=== PATIENT | female | born 1980 | race Caucasian/White ===

== ENCOUNTER 2020-10-16 10:33 | Emergency (ER) | payer OTHER ==
[2020-10-16] MEDS ORDERED: ACETAMINOPHEN 325 MG TABLET PO ONE (11:07)
--- NOTE | 2020-10-16 11:09 | ER Document Report ---
ED Medical Screen (RME) - General Chief Complaint: Pelvic Pain Stated Complaint: PELVIC PAIN Time Seen by Provider: 10/16/20 11:01 - HPI Notes: 10/16/20 11:07 40-year-old female presents to the emergency room today for evaluation of sudden onset left-sided pelvic pain that started abruptly 12 hours ago, pain is 5 out of 5 and constant, describes a sharp pain. Reports the pain does radiate to her lower back. Denies any vaginal bleeding, vaginal discharge. Last bowel movement was this morning. Patient states she does have a history of endometriosis and this pain does feel different. LMP 09/30/2020. Tried 800 mg ibuprofen at 6:00 this morning without pain relief. Denies any nausea, vomiting, abdominal pain, chest pain, shortness of breath, fevers or chills.Taking Abilify and Cymbalta to manage her depression. Patient is visiting from [place] I have greeted and performed a rapid initial assessment of this patient. A comprehensive ED assessment and evaluation of the patient, analysis of test results and completion of the medical decision making process will be conducted by additional ED providers. PHYSICAL EXAMINATION: GENERAL: Well-appearing, well-nourished and in mild distress CV: s1, s2 regular LUNGS: No respiratory distress abd: Left suprapubic tenderness on palpation. no cva tenderness appreciated bilaterally Musculoskeletal: Normal range of motion NEUROLOGICAL: Normal speech, normal gait. SKIN: Warm, Dry, normal turgor, no rashes or lesions noted. The patient was evaluated during a global COVID-19 pandemic and that diagnosis was suspected/considered upon their initial presentation. Their evaluation, treatment and testing was consistent with current guidelines for patients who present with complaints or symptoms and may be related to COVID-19. - Related Data Allergies/Adverse Reactions: clonidine Allergy (Verified 10/16/20 11:00) Past Medical History - Social History Frequency of alcohol use: None Drug Abuse: None Physical Exam - Vital signs Vitals: Temp Pulse Resp BP Pulse Ox 98.2 F 79 18 174/89 H 98 10/16/20 10:48 10/16/20 10:48 10/16/20 10:48 10/16/20 10:48 10/16/20 10:48 Course - Vital Signs Vital signs: Temp Pulse Resp BP Pulse Ox 98.2 F 79 18 174/89 H 98 10/16/20 10:48 10/16/20 10:48 10/16/20 10:48 10/16/20 10:48 10/16/20 10:48
[2020-10-16 11:36] LABS: APPEARANCE,URINE SLIGHTLY-CLOUDY; BILIRUBIN,URINE NEGATIVE (NEGATIVE); COLOR,URINE YELLOW; GLUCOSE, URINE NEGATIVE (NEGATIVE); KETONES,URINE NEGATIVE (NEGATIVE); LEUKOCYTE ESTERASE,URINE TRACE (NEGATIVE); NITRITE,URINE NEGATIVE (NEGATIVE); PROTEIN,URINE 100 mg/dL (NEGATIVE); URINE SPECIFIC GRAVITY 1.027; UROBILINOGEN,URINE NEGATIVE mg/dL (<2.0)
--- NOTE | 2020-10-16 12:27 | RADIOLOGY REPORT (SQ) ---
EXAM DESCRIPTION: U/S NON OB PEL TV W/DOPPLER IMAGES COMPLETED DATE/TIME: 10/16/2020 11:51 am REASON FOR STUDY: sudden onset L pelvic pain x 12hrs,-bleeding,+endo COMPARISON: None. TECHNIQUE: Dynamic and static grayscale images acquired of the pelvis via transvaginal approach and recorded on PACS. Additional selected color Doppler and spectral images recorded. LIMITATIONS: None. FINDINGS: UTERUS: The myometrium is slightly heterogeneous. Cannot exclude the presence of some ill -defined fibroids. ENDOMETRIAL STRIPE: No focal or generalized thickening. No masses. CERVIX: 3.4 cm. No nabothian cysts. RIGHT OVARY AND DOPPLER: Normal size. No worrisome masses. Normal arterial vascular flow without evid ence for torsion. LEFT OVARY AND DOPPLER: Normal size. No worrisome masses. Normal arterial vascular flow without evide nce for torsion. FREE FLUID: None noted. OTHER: No other significant finding. MEASUREMENTS: UTERUS: 10.7 x 6.9 x 5.8 cm. ENDOMETRIAL STRIPE: 4 mm. RIGHT OVARY: 2.6 x 1.8 x 2.3 cm. LEFT OVARY: 2.4 x 1.5 x 1.5 cm. IMPRESSION: There may be some small uterine fibroids. No other significant or acute finding. TECHNICAL DOCUMENTATION: JOB ID: [id number] [employer]- All Rights Reserved Rev-02/05 Reading location - IP/workstation name: [email or web address]
[2020-10-16 12:28] LABS: ABSOLUTE EOSINOPHILS # (AUTO) 0.2 10^3/uL (0.0-0.6); ABSOLUTE LYMPHOCYTES (AUTO) 2.8 10^3/uL (0.5-4.7); ABSOLUTE MONOCYTES (AUTO) 0.7 10^3/uL (0.1-1.4); ABSOLUTE NEUT (AUTO) 8.2 10^3/uL (1.7-8.2); BASOPHILS % (AUTO) 0.3 % (0-2); EOSINOPHILS % (AUTO) 1.3 % (0-6); HEMATOCRIT 37.8 % (36.0-47.0); HEMOGLOBIN 12.3 g/dL (12.0-15.5); LYMPHOCYTES % (AUTO) 23.6 % (13-45); MEAN CORPUSCULAR HEMOGLOBIN 25.3 pg (27.0-33.4); MEAN CORPUSCULAR HGB CONC 32.6 g/dL (32.0-36.0); MEAN CORPUSCULAR VOLUME 78 fl (80-97); MONOCYTES % (AUTO) 5.6 % (3-13); PLATELET COUNT 289 10^3/uL (150-450); RED BLOOD COUNT 4.87 10^6/uL (3.72-5.28); RED CELL DISTRIBUTION WIDTH 16.5 % (11.5-14.0); SEGMENTED NEUTROPHILS % (AUTO) 69.2 % (42-78); TOTAL CELLS COUNTED % (AUTO) 100 %; WHITE BLOOD COUNT 11.8 10^3/uL (4.0-10.5)
[2020-10-16] MEDS ORDERED: ONDANSETRON 4 MG TAB.RAPDIS PO ONE (13:05)
[2020-10-16] MEDS ORDERED: MORPHINE SULFATE 10 MG/ML INJ IV ONE (13:05)
--- NOTE | 2020-10-16 14:11 | ER Document Report ---
ED General - General Chief Complaint: Pelvic Pain Stated Complaint: PELVIC PAIN Time Seen by Provider: 10/16/20 11:01 Mode of Arrival: Ambulatory Information source: Patient - HPI Notes: Patient presents with left lower quadrant pain x1 day. She states it started in the middle the night last night. She states is severe and constant. It does radiate down into the right side of the abdomen as well. It is sharp. States she has had similar pain when she has had a cyst in her ovary in the past. She denies any vaginal symptoms such as bleeding or discharge. She denies any knowledge of being . She has had no problem with stool. She has no dysuria urgency or frequency. - Related Data Allergies/Adverse Reactions: clonidine Allergy (Verified 10/16/20 11:00) Past Medical History - General Information source: Patient - Social History Smoking Status: Current Every Day Smoker Frequency of alcohol use: None Drug Abuse: None Family History: Reviewed & Not Pertinent Review of Systems - Review of Systems Constitutional: denies: Chills, Fever Cardiovascular: denies: Chest pain, Palpitations Respiratory: denies: Cough, Short of breath -: Yes All other systems reviewed and negative Physical Exam - Vital signs Vitals: Temp Pulse Resp BP Pulse Ox 98.2 F 79 18 174/89 H 98 10/16/20 10:48 10/16/20 10:48 10/16/20 10:48 10/16/20 10:48 10/16/20 10:48 Interpretation: Hypertensive - General General appearance: Appears well, Alert - HEENT Head: Normocephalic, Atraumatic Eyes: Normal Pupils: PERRL - Respiratory Respiratory status: No respiratory distress Chest status: Nontender Breath sounds: Normal Chest palpation: Normal - Cardiovascular Rhythm: Regular Heart sounds: Normal auscultation Murmur: No - Abdominal Inspection: Obese Distension: No distension Bowel sounds: Normal Tenderness: Tender - Left lower quadrant Organomegaly: No organomegaly - Back Back: Normal, Nontender - Extremities General upper extremity: Normal inspection, Nontender, Normal color, Normal ROM, Normal temperature General lower extremity: Normal inspection, Nontender, Normal color, Normal ROM, Normal temperature, Normal weight bearing. No: Delicia's sign - Neurological Neuro grossly intact: Yes Cognition: Normal Orientation: AAOx4 Roberto Coma Scale Eye Opening: Spontaneous [place] Coma Scale Verbal: Oriented [place] Coma Scale Motor: Obeys Commands [place] Coma Scale Total: 15 Speech: Normal Motor strength normal: LUE, RUE, LLE, RLE Sensory: Normal - Psychological Associated symptoms: Normal affect, Normal mood - Skin Skin Temperature: Warm Skin Moisture: Dry Skin Color: Normal Course - Re-evaluation Re-evalutation: 10/16/20 14:09 I do not believe the urine would explain her pain possibly she has some fibroid related pain and I have explained this to her. I have instructed her that is important she follow back up with her motor and controls tester and that I will discharge her home with antibiotics and pain medication. - Vital Signs Vital signs: Temp Pulse Resp BP Pulse Ox 98.2 F 79 18 174/89 H 98 10/16/20 10:48 10/16/20 10:48 10/16/20 10:48 10/16/20 10:48 10/16/20 10:48 - Laboratory Results Result Diagrams: 10/16/20 12:05 10/16/20 13:48 Laboratory Results Interpreted: 10/16/20 10/16/20 11:15 12:05 WBC 11.8 H MCV 78 L MCH 25.3 L RDW 16.5 H Urine Protein 100 H Urine Blood SMALL H Ur Leukocyte Esterase TRACE H Critical Laboratory Results Reviewed: No Critical Results - Radiology Results Critical Radiology Results Reviewed: No Critical Results Discharge - Discharge Clinical Impression: UTI (urinary tract infection) Qualifiers: Urinary tract infection type: acute cystitis Hematuria presence: without hematuria Qualified Code(s): N30.00 - Acute cystitis without hematuria Condition: Stable Disposition: HOME, SELF-CARE Instructions: Urinary Tract Infection ([facility]), Pelvic Pain ([facility]), Nitrofurantoin ([facility]) Additional Instructions: Please follow-up with your motor and controls tester as soon as possible Prescriptions: Nitrofurantoin Monohyd/M-Cryst [Macrobid 100 mg Capsule] 100 mg PO BID 3 Days #6 cap Hydrocodone/Acetaminophen [[place] 5-325 mg Tablet] 1 tab PO Q6 PRN 3 Days #12 tablet PRN Reason: Forms: Return to Work
[2020-10-16 14:22] VITALS: BP 137/71
[2020-10-16 14:36] LABS: ALBUMIN 3.9 g/dL (3.5-5.0); ALKALINE PHOSPHATASE 92 U/L (38-126); ANION GAP 9 (5-19); ASPARTATE AMINO TRANSFERASE 19 U/L (14-36); BILIRUBIN,DIRECT 0.2 mg/dL (0.0-0.4); BILIRUBIN,TOTAL 0.3 mg/dL (0.2-1.3); BLOOD UREA NITROGEN 18 mg/dL (7-20); CALCIUM 8.9 mg/dL (8.4-10.2); CARBON DIOXIDE 25 mmol/L (22-30); CHLORIDE 107 mmol/L (98-107); GLUCOSE 83 mg/dL (75-110); POTASSIUM 4.3 mmol/L (3.6-5.0); TOTAL PROTEIN 7.2 g/dL (6.3-8.2)
== END 2020-10-16 14:29 | disposition home or self-care (01) ==
LOC: ER 10:33
DX: N30.00 Acute cystitis without hematuria (principal); F17.200 Nicotine dependence, unspecified, uncomplicated; Z88.8 Allergy status to other drugs, medicaments and biological substances
CPT/HCPCS: 99284; 96374; 36415; 84702; 85025; 80053; 81001; 76830; 93976; S0119; J2270

== ENCOUNTER 2020-10-18 15:05 | Emergency (ER) | payer OTHER, MEDICAID ==
[2020-10-18] MEDS ORDERED: HYDROCODONE/ACETAMINOPHEN 5-325 MG TABLET PO ONE (16:39)
--- NOTE | 2020-10-18 16:47 | ER Document Report ---
ED GI/ - General Chief Complaint: Pelvic Pain Stated Complaint: PELVIC PAIN Time Seen by Provider: 10/18/20 16:14 Primary Care Provider: [facility] [Provider Group] - Follow up as needed - [facility] Notes: Patient is a 40-year-old female with a history of endometriosis who presents with bilateral chronic pelvic pain for the past 4 months. Patient was seen in the emergency department 2 days ago and had a complete work-up. Transvaginal ultrasound showed small uterine fibroids. Patient was sent home with a prescription for [place]. Patient presents today for the same pain. She denies any change or any new symptoms at this time. She denies fever, vomiting, chest pain, shortness of breath. She denies any vaginal discharge and vaginal bleeding. She states she has run out of the [place] and has tried taking ibuprofen with no relief. Patient is currently visiting from [place] and tried calling her primary care providers back home but they were unable to prescribe [place] any more [place]. Patient is set to drive home in 4 days but is concerned she will be unable to do so in the amount of pain she is in currently. Patient states she has an appointment with her BEAD[employer]ER on November 01, 2020. - Related Data Allergies/Adverse Reactions: clonidine Allergy (Verified 10/18/20 15:51) Home Medications: cymbalta, abilify, metformin Past Medical History - General Information source: Patient - Social History Smoking Status: Current Every Day Smoker Chew tobacco use (# tins/day): No Smoking Education Provided: Yes - <3 minutes Frequency of alcohol use: None Drug Abuse: None Family History: Reviewed & Not Pertinent Patient has homicidal ideation: No Endocrine Medical History: Reports: Hx Diabetes Mellitus Type 2 Psychiatric Medical History: Reports: Hx Depression Past Surgical History: Reports: Hx Gynecologic Surgery - lt ovarian cyst Review of Systems - Review of Systems Constitutional: No symptoms reported EENT: No symptoms reported Cardiovascular: No symptoms reported Respiratory: No symptoms reported Gastrointestinal: No symptoms reported Genitourinary: No symptoms reported Female Genitourinary: No symptoms reported Musculoskeletal: No symptoms reported Skin: No symptoms reported Hematologic/Lymphatic: No symptoms reported Neurological/Psychological: No symptoms reported Physical Exam - Vital signs Vitals: Temp Pulse Resp BP Pulse Ox 98.6 F 92 18 208/82 H 96 10/18/20 15:09 10/18/20 15:09 10/18/20 15:09 10/18/20 15:09 10/18/20 15:09 - Notes Notes: PHYSICAL EXAMINATION: VITALS: Vitals reviewed. GENERAL: Obese young female lying in bed in mild distress. HEAD: Atraumatic, normocephalic. EYES: Pupils equal, round, and reactive to light, extraocular movements intact, sclera anicteric, conjunctiva are normal. ENT: Nares patent. Moist mucous membranes. Oropharynx clear without exudates. NECK: Normal range of motion, supple without lymphadenopathy. LUNGS: Breath sounds clear to auscultation bilaterally and equal. No wheezes, rales, or rhonchi. HEART: Regular, rate, and rhythm without murmurs. ABDOMEN: Soft, nontender, normoactive bowel sounds. No guarding, no rebound. No masses appreciated. EXTREMITIES: Normal range of motion, no pitting or edema. No cyanosis. NEUROLOGICAL: No focal neurological deficits. Moves all extremities spontaneously and on command. PSYCH: Normal mood, normal affect. SKIN: Warm, Dry, normal turgor, no rashes or lesions noted. Course - Re-evaluation Re-evalutation: Patient is a 40-year-old female who presents with chronic bilateral pelvic pain. Patient was seen in the emergency department 2 days ago and had a full and complete work-up. She returns today for continuation of pain that she has ran out of her [place] that was prescribed to her. Patient denies any change or worsening in her symptoms as well as she denies any new symptoms. Patient was initially hypertensive with a BP of 208/82 but this is consistent with her reported pain. Vital signs otherwise unremarkable and patient is afebrile. On exam, abdomen is soft and nontender. As patient had a complete and thorough work-up done 2 days ago and no change in her presentation, I do not feel any further imaging or lab work is needed at this time. Lengthy discussion with patient concerning options for nonnarcotic pain medications. I recommended that she take ibuprofen and Tylenol in combination or alternate them for pain relief. Patient advised that I cannot prescribe any more narcotic pain medication at this time, but I can give her one last dose here in the emergency department. Patient understands and is in agreement with this plan. Return precautions and follow-up instructions given. Patient will be discharged home at this time. - Vital Signs Vital signs: Temp Pulse Resp BP Pulse Ox 98.6 F 88 18 178/82 H 99 10/18/20 15:09 10/18/20 17:06 10/18/20 17:06 10/18/20 17:06 10/18/20 17:06 - Laboratory Results Critical Laboratory Results Reviewed: No Critical Results - Radiology Results Critical Radiology Results Reviewed: No Critical Results Discharge - Discharge Clinical Impression: Pelvic pain Condition: Stable Disposition: HOME, SELF-CARE Additional Instructions: Take ibuprofen and tylenol in combination or alternate every three hours. Make sure to not take more than the max dose as listed on the bottle. Pelvic Pain There are many causes of pain in the pelvic area. The cause could be the tubes, ovaries, uterus, intestines, appendix, pelvic muscles and connective tissue, or the urinary tract. The cause of your pelvic pain is not clear. However, it seems safe to treat you outside the hospital. If the pain sounds like a temporary problem, we sometimes wait to see if it goes away. Other patients may need additional tests, such as pelvic ultrasound or cultures. Conditions may change. Call us or come back for reexamination if any problems occur, such as: (1) Pain that becomes more severe, steady, or becomes concentrated in one specific area. Also, pain that is more severe with movement or coughing. (2) Vomiting that persists or becomes more frequent. (3) Blood in the vomitus, urine, or bowel movements. Blood in the stool may have a tarry or black appearance. (4) Shaking chills or fever greater than 100 degrees. (5) The abdomen becomes more distended or swollen. (6) Bowel movements cease. (7) Heavy vaginal bleeding. Pain Control without Medication Stress, inactivity, and depression make pain more severe, no matter the cause of the pain. Stress and poor physical condition can cause pain such as headaches and backache. Relaxation: Rest in a quiet place with your eyes closed for 20 minutes twice daily. Concentrate on a pleasant image, or simply "feel" your breathing. Clear your mind. Stress management: DEAL with your "stressors." Either take action, or eliminate the stressor from your life. Don't let things hang over you. Accept those things you can't change. Nutrition: Eat small, balanced meals; don't skip, don't overeat. Meals should be high-carbohydrate, low-sugar, low-fat. Exercise: Exercise helps painful conditions and eases stress. Get 30 minutes of moderate exercise, five days a week. Precautions: Pain that continues to disrupt daily activities, or which changes in nature, requires a medical evaluation. Referrals: [facility] [Provider Group] - Follow up as needed
[2020-10-18 17:08] VITALS: BP 178/82
== END 2020-10-18 17:07 | disposition home or self-care (01) ==
LOC: ER 15:05
DX: G89.29 Other chronic pain (principal); R10.2 Pelvic and perineal pain; D25.9 Leiomyoma of uterus, unspecified; F17.200 Nicotine dependence, unspecified, uncomplicated; E11.9 Type 2 diabetes mellitus without complications; F32.9 Major depressive disorder, single episode, unspecified; Z79.899 Other long term (current) drug therapy; Z79.84 Long term (current) use of oral hypoglycemic drugs; Z88.8 Allergy status to other drugs, medicaments and biological substances
CPT/HCPCS: 99283